=== PATIENT | male | born 1940 | race Caucasian/White ===

== ENCOUNTER 2023-04-24 11:38 | Outpatient (REF) | payer MEDICARE, SELFPAY ==
[2023-04-24 13:26] LABS: MANUAL DIFF FLAG NO
[2023-04-24 13:42] LABS: Basophils Absolute Auto 0.1 X10*3/uL (0.0-0.2); Basophils Percent Auto 0.9 % (0-2); Eosinophils Absolute Auto 0.2 X10*3/uL (0.0-0.4); Eosinophils Percent Auto 2.6 % (0-4); Hematocrit 40.9 % (42.0-52.0); Hemoglobin 13.6 g/dl (14.0-18.0); Imm Gran Abs Auto 0.04 X10*3/uL (0.00-0.03); Imm Gran Pct Auto 0.5 % (0.0-0.4); Lymphocytes Absolute Auto 1.5 X10*3/uL (1.2-4.9); Lymphocytes Percent Auto 18.1 % (20-40); Mean Corpuscular HGB Conc 33.3 g/dl (31.0-36.0); Mean Corpuscular Hemoglobin 31.4 pg (27.0-33.0); Mean Corpuscular Volume 94.5 fL (80.0-98.0); Monocytes Absolute Auto 0.9 X10*3/uL (0.1-1.2); Monocytes Percent Auto 11.3 % (2-11); Neutrophils Absolute Auto 5.3 x10*3/uL (2.0-8.3); Neutrophils Percent Auto 66.6 % (45-73); Platelet Count 239 X10*3/uL (160-400); Red Blood Count 4.33 X10*6/uL (4.60-5.80); Red Cell Distribution Width 12.7 % (11.0-16.0)
[2023-04-24 14:05] LABS: Alanine Aminotransferase 9 U/L (0-40); Alkaline Phosphatase 114 U/L (39-117); Anion Gap 12 (12-20); Aspartate Amino Transferase 18 U/L (5-37); Bilirubin Total 0.9 mg/dL (0.0-1.0); Blood Urea Nitrogen 19 mg/dL (9-16); Calcium 10.2 mg/dL (8.4-10.2); Carbon Dioxide 27 mmol/L (22-29); Chloride 103 mmol/L (96-108); Estimated Glomerular Filt Rate > 60; Glucose Random 105 mg/dL (60-115); Potassium 4.1 mmol/L (3.3-5.1); Sodium 138 mmol/L (135-145); Total Protein 7.8 g/dL (6.5-8.0)
[2023-04-24 14:19] LABS: Erythrocyte Sedimentation Rate 23 MM/HR (0-15)
[2023-04-24 14:25] LABS: Thyroid Stimulating Hormone 0.73 uIU/mL (0.32-4.0)
== END 2023-04-24 11:39 | disposition home or self-care (01) ==
LOC: HO.MANLDS 11:38
PROVIDERS: Visit Provider Internal Medicine
DX: R42 Dizziness and giddiness (principal); M62.81 Muscle weakness (generalized)
CPT/HCPCS: 36415; 80053; 84443; 85025; 85652

== ENCOUNTER 2023-04-29 14:58 | Outpatient (REF) | payer MEDICARE, OTHER, SELFPAY | END 2023-04-29 14:59 | disposition home or self-care (01) | LOC: HO.LAB 14:58 | PROVIDERS: PCP Internal Medicine; Visit Provider Internal Medicine | DX: Z13.89 Encounter for screening for other disorder (principal) ==

== ENCOUNTER → 2023-05-19 12:46 | Outpatient (REF) | payer MEDICARE, OTHER, SELFPAY ==
--- NOTE | ~2023-05-19 | US_ITS ---
EXAMINATION: US EXTRACRANIAL CAROTID DUPLEX, BILATERAL CLINICAL INFORMATION: Dizziness COMPARISON: None available. TECHNIQUE: Real-time ultrasound and Doppler techniques (integrating B-mode 2-D vascular images, Doppler spectral analysis and color-flow Doppler imaging) were utilized to interrogate the extracranial carotid arteries, the vertebral arteries and proximal subclavian arteries bilaterally. The degree of stenosis is determined by criteria similar to NASCET. FINDINGS: Right Side: 1. There is mild atherosclerotic plaque seen in the bifurcation/proximal ICA region. 2. The common carotid artery PSV proximally is 81.8 cm/s and distally 61.5 cm/s. 3. The proximal internal carotid artery velocities are 52.0 cm/s systolic and 11.5 cm/s diastolic. 4. The proximal external carotid artery PSV is 71.4 cm/s. 5. The vertebral artery shows antegrade flow. 6. The subclavian artery waveforms are normal. 7. Enlarged lymph node is seen measuring 1.6 x 0.7 cm Left Side: 1. There is mild atherosclerotic plaque seen in the bifurcation/proximal ICA region. 2. The common carotid artery PSV proximally is 83.4 cm/s and distally 64.4 cm/s. 3. The proximal internal carotid artery velocities are 56.7 cm/s systolic and 14.1 cm/s diastolic. 4. The proximal external carotid artery PSV is 68.5 cm/s. 5. The vertebral artery shows antegrade flow. 6. The subclavian artery waveforms are normal. 7. Enlarged lymph node is seen measuring 1.6 x 1.2 cm US/US carotid duplex BI IMPRESSION: 1. RIGHT: Minimal, non-hemodynamically significant stenosis of the proximal right internal carotid artery corresponding to a 0-49% stenosis by velocity criteria. 2. LEFT: Minimal, non-hemodynamically significant stenosis of the proximal left internal carotid artery corresponding to a 0-49% stenosis by velocity criteria. 3. Enlarged bilateral cervical lymph nodes
--- NOTE | 2023-05-19 12:49 | CA_ITS ---
Transthoracic Echocardiogram Patient (Last, First, Middle): Moi Pratt L Gender: Male Date of : 1940 Age: 82 Procedure Date: 05/19/2023 Procedure Type: Transthoracic Echocardiogram Location: OP Height: 177.8 cm Weight: 79.38 kg BSA: 1.97 m2 Heart Rate: bpm BP: 130 / 70 mmHg Rock Cutter: TO Referring MD: Terry Gerard MD Symptoms: R42 DIZZINESS GIDDINESS Study Quality: Fair ECG Rhythm: Sinus Conclusions: - The left ventricular systolic function is low normal. The visually estimated ejection fraction is between 50-55%. - The inferoseptal wall and basal inferior segment are hypokinetic. - No obvious valvular pathology seen on this study. - There is moderate dilatation of the ascending aorta measuring 4.60 cm. Findings Procedure Information The study quality is limited by the patients inability to tolerate the test. Left Ventricle Normal left ventricular cavity size. The left ventricular systolic function is low normal. The visually estimated ejection fraction is between 50-55%. Evidence suggests grade I (mild) diastolic dysfunction. There is mild septal asymmetric hypertrophy. Wall Motion Rest Echo Findings The inferoseptal wall and basal inferior segment are hypokinetic. Right Ventricle Mildly increased right ventricular cavity size. There is normal right ventricular systolic function. Atria The left atrium is mildly dilated. The right atrium is normal in size. Aortic Valve There is mild calcification of the aortic valve. There is no aortic valve stenosis. There is trace (trivial) aortic valve regurgitation. Mitral Valve The mitral valve appears normal. There is no mitral valve regurgitation. There is no mitral valve stenosis. Pulmonic Valve The pulmonic valve is likely normal. Tricuspid Valve There is trace tricuspid valve regurgitation. There is no evidence of pulmonary hypertension. Great Vessels There is moderate dilatation of the ascending aorta measuring 4.60 cm. Venous The inferior vena cava is dilated and collapses greater than 50% with inspiration. Pericardium/Pleural There is no evidence of pericardial effusion. Prior Study Comparison No prior study available for comparison. Recommendations, Care & Conclusions No obvious valvular pathology seen on this study. Measurements 2D Linear Measurements IVSd: 1.05 0.6-0.9/0.6-1.0 cm LVIDd: 5.02 3.9-5.3/4.2-5.9 cm LVIDd Index: 2.55 2.4-3.2/2.2-3.1 cm/m2 LVIDs: 3.44 2.0-3.6 cm LVPWd: 0.90 0.7-1.1 cm LA Diam: 3.30 2.7-3.8/3.0-4.0 cm LAIDs Index: 1.68 1.5-2.3 cm/m2 LV Mass: 221.19 67-162/88-224 g LV Mass Index: 112.28 43-95/49-115 g/m2 LVOT Diam: 2.20 3.0+(-)1.3 cm 2D Systolic Function EF 4C: 53.50 >55% EF 2C: 57.40 >55% EF BiP: 57.00 >55% Mitral Valve MV Pk E: 0.44 MV PK A: 0.62 MV Decel Time: 359.00 E/A: 0.70 E'Lateral: 4.90 E'Medial: 4.46 E/E' Med: 9.90 E/E' Lat: 9.00 PHT: 105.00 MVA PHT: 2.10 Decel Dade: 1.23 Aortic Valve AoV Pk Kody: 1.39 AoV Mn Kody: 0.99 AoV VTI: 0.31 AoV Pk Grad: 8.00 Aov Mn Grad: 4.00 CONSTANTIN Cont.VTI: 2.27 LVOT LVOT Pk Kody: 0.73 LVOT Mn Kody: 0.48 LVOT VTI: 0.19 LVOT Pk Grad: 2.00 LVOT Mn Grad: 1.00 LVOT Diam: 2.20 LVOT Area: 3.80 Diastolic Function MV Pk E: 0.44 MV Pk A: 0.62 E/A: 0.70 E'Medial: 4.46 E/E' Med: 9.90 E' Laterial: 4.90 E/E' Lat: 9.00 Right Ventricle TAPSE (mm): 21.40 TVS' Kody: 12.70 Tricuspid Valve TR Pk Kody: 1.74 TR Pk Grad: 12.00 RA Press: 8.00 RVSP: 20.00 Great Vessels Aorta Sinus of Valsalva: 3.71 2.0-3.[address] [place]: 3.09 1.7-3.4 cm Ao Asc: 4.60 2.1-3.4 cm Updated in Other Vendor System with Status of Final Miquel Mcgill MD electronically signed on 05/20/2023 9:27:01 AM with status of Final
== END ==
LOC: HO.CARD 12:46
PROVIDERS: PCP Internal Medicine; Visit Provider Internal Medicine
DX: R42 Dizziness and giddiness (principal)
CPT/HCPCS: 93306; 93880

== ENCOUNTER → 2023-05-19 12:49 | Outpatient (BNV) | payer MEDICARE, OTHER, SELFPAY | PROVIDERS: PCP Internal Medicine; Visit Provider Internal Medicine | DX: I35.8 Other nonrheumatic aortic valve disorders (principal) | CPT/HCPCS: 93306 ==

== ENCOUNTER 2023-05-28 11:24 | Emergency (ER) | payer MEDICARE, OTHER, SELFPAY ==
[2023-05-28] VITALS (10 sets, daily range): BP systolic 118–144; BP diastolic 57–72; PULSE 58–85; RESP 16; TEMP 35.7–36.7; O2SAT 98–100; BMI 27.0
--- NOTE | ~2023-05-28 | XR_ITS ---
EXAMINATION: XR CHEST CLINICAL INFORMATION: Syncope and difficulty breathing COMPARISON: None available. TECHNIQUE: Frontal view of the chest was obtained. FINDINGS: Patient is very rotated as the study suboptimal. Lungs are grossly clear. Heart and pulmonary vessels normal without evidence for congestive change. Slight widening of the mediastinal structures likely technical and due to ectatic vessels. When clinically feasible I would recommend a well centered PA and lateral film. XR/XR chest 1V IMPRESSION: No active disease.
--- NOTE | ~2023-05-28 | CT_ITS ---
EXAMINATION: CT HEAD WITHOUT CONTRAST CLINICAL INFORMATION: Dizziness COMPARISON: None available. TECHNIQUE: Contiguous axial imaging was performed from the skull base to vertex without intravenous administration of contrast. This CT examination was performed using dose optimization techniques as appropriate, variously including the following: *Automated exposure control *Adjustment of mA and/or kV according to patient size (this includes techniques or standardized protocols for targeted exams where dose is matched to indication/reason for exam; i.e. extremities or head) *Use of iterative reconstruction technique DLP: 794 mGy-cm FINDINGS: There is prominence to the sulci and ventricles with matter gliosis observed however, no intra or extra-axial fluid collection or hemorrhage, mass, or mass effect. Calvarium intact. CT/CT head/brain wo IV con IMPRESSION: No acute intracranial pathology.
--- NOTE | 2023-05-28 13:30 | PC.NURSE ---
pt reporting on and off dizziness for 3 months. per pt and family he had an echo last week and results are pending. scheduled ct scan tomorrow. Pt denies taking any medications. orthostatic vitals done. pt stood up with stand by assistance, reported feeling lightheaded when he stood
--- NOTE | 2023-05-28 13:54 | ED_ITS ---
HPI - Dizziness General Chief Complaint: Dizziness Stated Complaint: FOUND ON GROUND,DIZZY,NAUSEA PER EMS Time Seen by Provider: 05/28/23 13:08 History of Present Illness HPI Narrative: Patient is a 82-year-old male with a history of having dizziness spells ongoing for the last 3 months. Patient has been standing for a period of time was cooking an egg subsequently felt dizzy. Lower himself gradually to the ground. There was no trauma. Over about 30 minutes or so the symptoms resolved. He denies having any chest pain no diaphoresis. No bloody stool. No coughing or congestion or upper respiratory symptoms. No new medication. Patient from home. The spells are exactly the same as previous. Patient had had an echo and carotids done both of which were negative. Related Data Allergies Allergy/AdvReac Type Severity Reaction Status Date / Time No Known Allergies Allergy Verified 05/28/23 11:39 Review of Systems 2 Review of Systems: Positive episode of weakness Yes all other systems are reviewed and are negative [facility] Past Medical History Attestation statement: The following information was validated with the patient. Social History Social History Alcohol intake: current Smoked in Last 30 Days: No Use of substances other than those prescribed or required for medical reasons: No Advance Directives: No Advance Directives Information Provided: Yes Physical Exam 2 Vital Signs: Vital Signs: Last Vital Signs Temp 96.3 F L 05/28/23 11:48 Pulse 74 05/28/23 15:54 Resp 16 05/28/23 11:48 BP 125/64 05/28/23 15:54 Pulse Ox 100 05/28/23 11:48 O2 Del Method Room Air 05/28/23 11:48 BMI result Body Mass Index 27.0 Appearance: Alert. Oriented X3. No acute distress. Eyes: Pupils equal, round and reactive to light. ENT: Pharynx normal. Neck: Normal inspection. Neck supple. No lymph nodes noted. No crepitus CVS: Normal heart rate and rhythm. Pulses normal. Normal S1 and S2 Respiratory: No respiratory distress. Breath sounds normal. No Wheezing. No rales Abdomen: Soft and nontender. No rigidity. No distention. good BS x4 Skin: Skin warm and dry. Normal skin color. Normal skin turgor. Extremities: No lower extremity edema. Neurovascular intact to all extremities. No Lacerations. No Rash Neuro: Oriented X 3. No motor deficit. No sensory deficit. Moving all extermities. No slurred speech Medical Decision Making Medical Decision Making [facility] Narrative: Patient is an 82-year-old male been having multiple episodes of near syncope dizziness spells. Today actually slid down to the ground slowly. There was no trauma. CT scan of the head was done. It was grossly negative. No evidence of bleeding. Patient's orthostatics were done. On lying blood pressure was 134/62 heart rate is 69 on standing patient's blood pressure is 125/64 heart rate is 74. Patient old lab was reviewed. Had a carotid done recently did not show any gross obstruction. Patient's echo was done recently. It showed a few areas of hypokinesis but good overall function. Patient's electrolytes today were unremarkable. Hemoglobin is baseline no evidence for anemia. Urine showed no signs of infection. Case was consulted by Cardiology. Will have patient follow-up on an outpatient basis. In stable condition. Differential Diagnosis Differential Diagnoses: The differential diagnosis associated with the presentation includes Vasovagal syncope, dehydration, arrhythmia Admission/Observation Consideration of admission/observation: Escalation of care including admission/observation considered Consult Healthcare Provider Management of the patient was discussed with: Tool Profiling Machine Set Up Operator (Cardiology) Lab Data [facility] Lab Attestation statement: I reviewed the patient's lab results. 05/28/23 14:40 05/28/23 14:40 Labs: Lab Results 05/28/23 05/28/23 Range/Units 14:40 15:30 WBC 9.5 (4.8-10.8) X10*3/uL RBC 4.21 L (4.60-5.80) X10*6/uL Hgb 13.0 L (14.0-18.0) g/dl Hct 38.7 L (42.0-52.0) % MCV 91.9 (80.0-98.0) fL MCH 30.9 (27.0-33.0) pg MCHC 33.6 (31.0-36.0) g/dl RDW 12.9 (11.0-16.0) % Plt Count 196 (160-400) X10*3/uL MPV 9.5 (9.4-12.4) fL Immature Gran % (Auto) 0.4 (0.0-0.4) % Neut % (Auto) 80.9 H (45-73) % Lymph % (Auto) 11.7 L (20-40) % [place] % (Auto) 6.2 (2-11) % Eos % (Auto) 0.5 (0-4) % Baso % (Auto) 0.3 (0-2) % Lymph # (Auto) 1.1 L (1.2-4.9) X10*3/uL [place] # (Auto) 0.6 (0.1-1.2) X10*3/uL Eos # (Auto) 0.1 (0.0-0.4) X10*3/uL Baso # (Auto) 0.0 (0.0-0.2) X10*3/uL Abs Immat Gran (auto) 0.04 H (0.00-0.03) X10*3/uL Absolute Neuts (auto) 7.7 (2.0-8.3) x10*3/uL Absolute Nucleated RBC 0.000 (0.0-0.012) X10*3/uL Nucleated RBC % (auto) 0.0 (0.0-0.2) /100WBC Sodium 137 (135-145) mmol/L Potassium 4.3 (3.3-5.1) mmol/L Chloride 106 (96-108) mmol/L Carbon Dioxide 23 (22-29) mmol/L Anion Gap 12 (12-20) BUN 17 H (9-16) mg/dL Creatinine 1.02 (0.5-1.4) mg/dL Estim Creat Clear Calc 56.6 Estimated GFR > 60 Random Glucose 98 (60-115) mg/dL Calcium 9.6 (8.4-10.2) mg/dL Total Bilirubin 0.9 (0.0-1.0) mg/dL AST 22 (5-37) U/L ALT 16 (0-40) U/L Alkaline Phosphatase 135 H (39-117) U/L Troponin I High Sens 12.6 (<3.5-35.0) ng/L Total Protein 7.5 (6.5-8.0) g/dL Albumin 3.7 (3.5-5.0) g/dL Urine Color Yellow Urine Appearance Clear Urine pH 6.0 (5.0-9.0) Ur Specific [place] 1.015 (1.005-1.025) Urine Protein Negative (Neg-Trace) mg/dL Urine Glucose (UA) Negative (Negative) mg/dL Urine Ketones Trace (Negative) mg/dL Urine Blood Negative (Negative) Urine Nitrite Negative (Negative) Ur Leukocyte Esterase Negative (Negative) Independent Interpretation I performed an independent interpretation of an: EKG (Heart rate is 60 NV QRS QTC within normal limits is no acute ST segment elevation noted.) and CT Scan (CT scan of the head grossly negative for any acute evidence of bleeding) Radiology Impression Discussion of test interpretation with radiology: I have reviewed the radiologist's reading. Independent Historian Clinical information obtained from an independent historian. History obtained from or confirmed by: Other (Patient's daughters) External Record Review External record reviewed: Office record Previous records reviewed including previous outpatient labs and previous outpatient ultrasound Chronic Conditions Patient?s care impacted by: Hypertension Discharge Plan Discharge Clinical Impression: Near syncope Patient Disposition: Home, Self-Care Instructions: Near Syncope (ED) Referrals: Ramón Rosado MD [Physician] - 06/01/23
--- NOTE | 2023-05-28 14:40 | ECG_ITS ---
Test Reason : CHEST PAIN Blood Pressure : / mmHG Vent. Rate : 058 BPM Atrial Rate : 058 BPM P-R Int : 192 ms QRS Dur : 076 ms QT Int : 430 ms P-R-T Axes : 015 004 007 degrees QTc Int : 422 ms Sinus bradycardia Otherwise normal ECG When compared with ECG of 29-DEC-2012 12:31, No significant change was found Referred By: Latia Leal Electronically Signed By:TRACI WISDOM MD
[2023-05-28 14:50] LABS: MANUAL DIFF FLAG NO
[2023-05-28 14:51] LABS: Basophils Percent Auto 0.3 % (0-2); Eosinophils Absolute Auto 0.1 X10*3/uL (0.0-0.4); Eosinophils Percent Auto 0.5 % (0-4); Hematocrit 38.7 % (42.0-52.0); Imm Gran Abs Auto 0.04 X10*3/uL (0.00-0.03); Imm Gran Pct Auto 0.4 % (0.0-0.4); Lymphocytes Absolute Auto 1.1 X10*3/uL (1.2-4.9); Lymphocytes Percent Auto 11.7 % (20-40); Mean Corpuscular HGB Conc 33.6 g/dl (31.0-36.0); Mean Corpuscular Hemoglobin 30.9 pg (27.0-33.0); Mean Corpuscular Volume 91.9 fL (80.0-98.0); Mean Platelet Volume 9.5 fL (9.4-12.4); Monocytes Absolute Auto 0.6 X10*3/uL (0.1-1.2); Monocytes Percent Auto 6.2 % (2-11); Neutrophils Absolute Auto 7.7 x10*3/uL (2.0-8.3); Neutrophils Percent Auto 80.9 % (45-73); Platelet Count 196 X10*3/uL (160-400); Red Blood Count 4.21 X10*6/uL (4.60-5.80); Red Cell Distribution Width 12.9 % (11.0-16.0); White Blood Count 9.5 X10*3/uL (4.8-10.8)
[2023-05-28 15:11] LABS: Troponin-I High Sensitivity 12.6 ng/L (<3.5-35.0)
[2023-05-28 15:28] LABS: Alanine Aminotransferase 16 U/L (0-40); Albumin Level 3.7 g/dL (3.5-5.0); Alkaline Phosphatase 135 U/L (39-117); Anion Gap 12 (12-20); Aspartate Amino Transferase 22 U/L (5-37); Bilirubin Total 0.9 mg/dL (0.0-1.0); Blood Urea Nitrogen 17 mg/dL (9-16); Calcium 9.6 mg/dL (8.4-10.2); Carbon Dioxide 23 mmol/L (22-29); Chloride 106 mmol/L (96-108); Creatinine Clr Calc Pharmacy 56.6; Estimated Glomerular Filt Rate > 60; Glucose Random 98 mg/dL (60-115); Potassium 4.3 mmol/L (3.3-5.1); Sodium 137 mmol/L (135-145); Total Protein 7.5 g/dL (6.5-8.0)
[2023-05-28 15:37] LABS: Appearance Urine Clear; Color Urine Yellow; Glucose Urine UA Negative (Negative); Leukocyte Esterase Urine Negative (Negative); Nitrite Urine Negative (Negative); Specific Gravity - Urine 1.015 (1.005-1.025); Urine Blood Negative (Negative); Urine Ketones Trace mg/dL (Negative); Urine Protein Negative (Neg-Trace)
--- NOTE | 2023-05-28 16:03 | PC.NURSE ---
post tib pulses palpable bilaterally, pedal pulses found via Doppler and marked
== END 2023-05-28 16:39 | disposition home or self-care (01) ==
PROVIDERS: Emergency Provider Emergency Medicine Emergency Medical Services; PCP Internal Medicine
DX: R55 Syncope and collapse (principal); R53.1 Weakness; R00.1 Bradycardia, unspecified; I10 Essential (primary) hypertension
CPT/HCPCS: 36415; 70450; 71045; 80053; 81003; 84484; 85025; 93005; 99284

== ENCOUNTER → 2023-05-28 14:40 | Outpatient (BNV) | payer MEDICARE, OTHER, SELFPAY | PROVIDERS: Emergency Provider Emergency Medicine Emergency Medical Services; PCP Internal Medicine; Visit Provider Internal Medicine Cardiovascular Disease | DX: R00.1 Bradycardia, unspecified (principal) | CPT/HCPCS: 93010 ==

== ENCOUNTER → 2023-06-17 13:37 | Outpatient (REF) | payer MEDICARE, OTHER, SELFPAY ==
--- NOTE | 2023-06-17 13:42 | HM_ITS ---
* Total monitoring time 7 days. * Underlying rhythm is sinus with an average rate of 63/Min. Range 43 to 95/Min. * Frequent supraventricular ectopy with a burden of 4%. Rare couplets. * Rare ventricular ectopy. 4 beat run of AIVR during sleep hours. * No significant pauses or AV blocks. * Dizziness/near syncope/oozy, back/neck aches associated with supraventricular ectopy. Abdominal cramps associated with sinus rhythm. MTDD
== END ==
LOC: HO.CARD 13:37
PROVIDERS: PCP Internal Medicine; Referring Provider Internal Medicine Cardiovascular Disease; Visit Provider Physician Assistant
DX: R42 Dizziness and giddiness (principal)
CPT/HCPCS: 93242

== ENCOUNTER → 2023-06-17 13:42 | Outpatient (BNV) | payer MEDICARE, OTHER, SELFPAY | PROVIDERS: PCP Internal Medicine; Referring Provider Internal Medicine Cardiovascular Disease; Visit Provider Internal Medicine | DX: I47.10 Supraventricular tachycardia, unspecified (principal) | CPT/HCPCS: 93244 ==

== ENCOUNTER 2023-07-20 10:57 | Outpatient (AMB) | payer MEDICARE, OTHER, SELFPAY ==
[2023-07-20 10:58] VITALS: BP 108/60; PULSE 71; BMI 25.3
--- NOTE | 2023-07-20 10:58 | MHC.OFFVIS ---
Intake Vital Signs 07/20/23 10:58 07/20/23 11:19 07/20/23 11:19 07/20/23 11:20 Height 5 ft 10 in Weight 176 lb 5.917 oz BMI 25.3 BP 108/60 117/62 117/60 113/56 L Blood Pressure Location Lt brachial Lt brachial Lt brachial Lt brachial Position Sitting Supine Sitting Standing Pulse 71 67 66 72 Intake Visit Reasons: follow-up c dc after holter Intake Note: Follow-up [facility] [place] dc after holter c/o weakness and dizziness Rn Clinical Research Required: No Hot Header Operator: Hot Header Operator Present Accompanied by: Daughter Allergies No Known Allergies Allergy (Verified 05/28/23 11:39) Medication List - Last Reconciled 07/20/23 by Ramón Rosado MD meclizine 12.5 mg PO TID PRN HPI HPI Comments History of Present Illness Details Thank you for referring Moi in cardiology consultation today for symptoms of lightheadedness. Patient is 82-year-old male with no significant past medical history who over the last 6-8 months has been having symptoms of lightheadedness. He came to the emergency room in May this year with episode of near-syncope. During that episode he said he was standing in the kitchen counter doing dishes and then got lightheaded and then try to get his bad but he did not catch it early enough and said he went to the ground mostly like he was going to pass out. He had his but pillows down there and he did not hurt himself. However prior to that he said he has been having these episodes while standing at the kitchen counter doing stuff and he would run to the master bedroom which is close by and would lie down to improve his symptoms. However after the last ER visit when he said in the car the daughter says while he was sitting has severe lightheaded spell like the world was spinning. He has been prescribe meclizine but has not taken it. He has never had a syncopal episode. He denies any palpitations. Subsequently had a workup echocardiogram in April which had shown low normal LVEF of 50-55% with possible RCA territory wall motion abnormality with moderately enlarged thoracic aorta. He also had subsequent Holter monitor after presenting to the emergency room which showed frequent PACs but without any significant tachy or Reilly arrhythmias to explain his symptoms. He had a CT scan of head while in the emergency room which was normal. He subsequently had an MRI of the brain which showed some ischemic changes but no space-occupying lesion. They concerned about this findings. He has ultrasound of carotids which showed mild carotid disease. Over the last 5 days he is developed double vision which is very bothersome to him and has led to lack of balance. He is currently using a walker. His orthostatic vitals done in the office are within normal limits. [facility] Medical History Thoracic aortic aneurysm Social History Alcohol intake: current Review of Systems Const Denies chills, Denies daytime sleepiness, Denies fatigue, Denies fever(s), Denies frequent falls, Denies poor appetite, Denies snoring, Denies stops breathing during sleep, Denies weakness, Denies weight gain and Denies weight loss Eyes Denies loss of vision ENT Denies dizziness and Denies hearing loss Card Denies chest pain, Denies claudication, Denies leg edema, Denies lightheadedness, Denies palpitations, Denies dyspnea, Denies dyspnea on exertion and Denies orthopnea Resp Denies cough, Denies excessive phlegm production, Denies dyspnea, Denies dyspnea on exertion, Denies snoring and Denies wheezing GI Denies abdominal pain, Denies hematochezia, Denies change in bowel habits, Denies nausea and Denies vomiting Denies dysuria and Denies urinary frequency Musc Denies arthralgias, Denies muscle weakness, Denies numbness and Denies other (frequent falls) Skin/Breast Denies nail changes and Denies rash Neuro Denies Abnormal speech present, Denies dizziness, Denies frequent falls, Denies loss of vision, Denies memory loss, Denies numbness and Denies weakness Psych Denies depression and Denies memory loss Endo Denies fatigue and Denies palpitations Herminio/Lymph Reports easy bruising and Reports other (anemia) Aller/Immun Denies wheezing Physical Exam Vital Signs: Last Vital Signs Pulse 72 07/20/23 11:20 BP 113/56 L 07/20/23 11:20 BMI result Body Mass Index 25.3 Const General: cooperative, comfortable, no acute distress, alert and awake Nutritional Appearance: thin and other (Frail appearing) Orientation/consciousness: patient oriented x3 Limitations: ambulation with walker HEENT Head: Yes normocephalic and Yes atraumatic Neck Neck: Yes trachea midline, Yes supple and Yes no JVD Resp Effort & Inspection: normal respiratory effort Auscultation: clear to auscultation bilaterally Cardio Jugular venous distension: no JVD Palpation: normal PMI Rate: regular rate Rhythm: regular rhythm Heart sounds: S1 normal heart sound present, S2 normal heart sound present, no click, no gallops, no murmurs and no rubs GI Auscultation: normal bowel sounds Skin General skin exam: no rashes or lesions noted Neuro General: patient oriented x3 and no focal motor deficits Speech: No Abnormal speech present Extrem General: Yes no clubbing, cyanosis or edema Assessment & Plan Assessment & Plan (1) Lightheadedness: Code(s): R42 - Dizziness and giddiness Plan: Patient with lightheadedness, 2 different kind of symptoms. He does notice spinning sensation and the whole turning around but also has what appears to be orthostatic lightheadedness which gets better when he lies down. Not sure of all of these symptoms are related to 1 diagnosis. He does have low normal LV ejection fraction and wall motion abnormality. Underlying coronary artery disease is likely but unlikely the causes orthostatic symptoms. He does have frequent PACs again unlikely to cause symptoms. His carotid duplex and brain imaging appear to be not explaining his symptoms dizziness although he has an upcoming neurologic appointment. His double vision is probably not related to his symptoms of orthostatic lightheadedness although it is unclear. I recommend he should see an international accounting manager. Advised to increase his fluid intake to at least 48 oz and liberalize the salt intake. I have also taken the liberty to add midodrine 2.5 mg t.i.d. to his regimen to see if symptoms are improved with orthostatic lightheadedness. Advised to monitor blood pressure at home. Given abnormal echocardiogram will suggest vasodilating myocardial perfusion imaging to rule out prognostically significant coronary artery disease. (2) Thoracic aortic aneurysm: Code(s): I71.20 - Thoracic aortic aneurysm, without rupture, unspecified Plan: Thoracic aortic aneurysm which is moderate Mary Ann enlarged. This incidental finding. Patient was not aware of it. We discussed about management of thoracic aortic aneurysm. At this point in time at this size there is no indication for surgical repair. Risk of acute aortic syndrome is low. Would measure annually. (3) PAC (premature atrial contraction): Code(s): I49.1 - Atrial premature depolarization Plan: Frequent PACs although these are not symptomatic and causing his orthostatic lightheadedness or dizziness. I would avoid treating this given that he has low blood pressure and no obvious symptoms related to it. Avoidance of stimulants was discussed. Follow up in the clinic in 4 weeks time to assess for symptom improvement with midodrine. Thank you for allowing me to partake in his care Orders: Orders CA lexiscan stress w geneiss Today R93.1 - Abnormal findings on diagnostic imaging of heart and coronary circulation Medications: New midodrine do not give last dose of day after 6PM or within 4 hrs of bedtime 2.5 mg PO TID 90 tabs 2RF Coding Level of Care Code New Pt Level 4 (38506) Diagnoses Lightheadedness R42 Thoracic aortic aneurysm I71.20 PAC (premature atrial contraction) I49.1
[2023-07-20 11:19] VITALS: BP 117/60; BP 117/62; PULSE 66; PULSE 67
[2023-07-20 11:20] VITALS: BP 113/56; PULSE 72
== END 2023-07-20 11:51 | disposition home or self-care (01) ==
PROVIDERS: PCP Internal Medicine; Visit Provider Internal Medicine Cardiovascular Disease
DX: R42 Dizziness and giddiness (principal); I71.20 Thoracic aortic aneurysm, without rupture, unspecified; I49.1 Atrial premature depolarization
CPT/HCPCS: 99214

== ENCOUNTER → 2023-07-20 10:57 | Outpatient (BNVA) | payer MEDICARE, OTHER, SELFPAY | PROVIDERS: PCP Internal Medicine; Visit Provider Internal Medicine Cardiovascular Disease | DX: R42 Dizziness and giddiness (principal); I71.20 Thoracic aortic aneurysm, without rupture, unspecified; I49.1 Atrial premature depolarization | CPT/HCPCS: 99212 ==

== ENCOUNTER 2023-09-26 14:24 | Emergency (ER) | payer MEDICARE, OTHER, SELFPAY ==
--- NOTE | ~2023-09-26 | CT_ITS ---
Examination: CT brain and CT cervical spine. Clinical indications: Fall with head strike. COMPARISON: CT brain 05/28/2023. TECHNIQUE: 5 mm thin axial and reformatted 2 mm thin sagittal coronal images of brain were obtained. Subsequently axial 3 mm thin and reformatted 2 mm thin sagittal and coronal images of cervical spine were obtained. DLP [id number]. This CT examination was performed using dose optimization technique as appropriate, variously including the following: Automated exposure control Adjustment of MA and/or KV according to patient size(this includes techniques or standardized protocols for targeted exams where dose is matched to indication/reason for exam; extremities or head. Use of iterative reconstruction techniques. FINDINGS: Brain: There is no acute intra-axial, extra-axial bleed, masses or midline shift. There is a subtle hypodensity seen in the cortex and deep white matter of left posterior parietal lobe suspicious for ischemia. The ramos to white matter differentiation is maintained normal. The lateral ventricles are symmetrical in size and configuration with mild enlargement enlargement. The bone windows reveal no calvarial abnormality. There is no scalp soft tissue abnormality. The paranasal sinuses and mastoid sinuses are well-aerated except for mild mucoperiosteal thickening right maxillary sinus. Cervical spine: The vertebral heights and alignment is normal. There is mild loss of C6-C7 disc level with vacuum disc phenomena. Mild ventral spondylosis seen throughout cervical spine. There is mild left C3-C4, right C4-C5 and C5-C6 facet joint arthropathy and hypertrophy. No visible acute fracture, dislocation or subluxation seen. The craniovertebral junction and C1-C2 alignment is normal. The prevertebral soft tissues are normal. There is blotchy soft tissue ossification of ligamentum nuchae. Posterior to C2 through C6 vertebra. CT/CT cervical spine wo IV con IMPRESSION: Subtle hypodensity in the deep white matter and cortex of left posterior parietal lobe/watershed area suspicious for ischemia. Mild cerebral volume loss. Exaggerated cervical lordosis without acute fracture or dislocation. There are mild degenerative changes.
--- NOTE | ~2023-09-26 | CT_ITS ---
EXAMINATION: CT ANGIOGRAM HEAD CT ANGIOGRAM NECK CLINICAL INFORMATION: Reason for Exam multiple falls , hx multiple CVAs COMPARISON: Same-day CT head TECHNIQUE: Initial noncontrast reporting lead imaging of the head and neck was performed. Comparison is made with noncontrast head CT from earlier today. Test bolus sequences followed by intravenous administration 70 mL of Omnipaque 350. Helical imaging was performed in the axial plane from the aortic arch to the skull vertex. Delayed postcontrast imaging of the head was also performed. The data was processed at the histotechnologist's workstation for generation of MIP sequences. Angled MIPs and volume rendered reformatted images were also generated at an offline 3D workstation. Stenoses are assessed in accordance with Charles et al. Quantification of Carotid Stenosis on CT Angiography. AJR 2006. 27(1):13-19. [address] CT examination was performed using dose optimization techniques as appropriate, variously including the following: *Automated exposure control *Adjustment of mA and/or kV according to patient size (this includes techniques or standardized protocols for targeted exams where dose is matched to indication/reason for exam; i.e. extremities or head) *Use of iterative reconstruction technique DLP: 1548 mGy-cm FINDINGS: CT HEAD: Again seen is hypodensity in the left parietal/occipital region suspicious for infarction. Enhancing extra-axial lesion along the right frontal vertex may represent a small meningioma. Please see separately dictated head CT for additional findings. CTA HEAD: Anterior circulation: Right internal carotid artery: Atherosclerosis without flow-limiting stenosis. Small probable infundibulum arising from the supraclinoid segment. Right middle cerebral artery: No hemodynamically significant stenosis. Right anterior cerebral artery: No hemodynamically significant stenosis. Left internal carotid artery: Atherosclerosis without flow limiting stenosis. Small posterior communicating artery origin infundibulum. Left middle cerebral artery: No flow-limiting stenosis. Approximately 2 mm laterally directed outpouching from the MCA bifurcation. Left anterior cerebral artery: No hemodynamically significant stenosis. Posterior circulation: Right vertebral artery: No hemodynamically significant stenosis. Left vertebral artery: No hemodynamically significant stenosis. Basilar artery: No hemodynamically significant stenosis. Right posterior cerebral artery: No hemodynamically significant stenosis. Left posterior cerebral artery: No hemodynamically significant stenosis. The left transverse and sigmoid sinus are likely congenitally small in caliber. 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 CTA NECK: Aortic arch: Normal anatomy. Scattered atherosclerosis of the thoracic aorta and proximal great vessels. Right common carotid artery: Proximally degraded by motion. No hemodynamically significant stenosis in the nondegraded aspects. Right proximal internal carotid artery: No hemodynamically significant stenosis. Right mid/distal internal carotid artery: No hemodynamically significant stenosis. Left common carotid artery: No hemodynamically significant stenosis. Left proximal internal carotid artery: No hemodynamically significant stenosis. Left mid/distal internal carotid artery: No hemodynamically significant stenosis. Right vertebral artery: No hemodynamically significant stenosis. Left vertebral artery: No hemodynamically significant stenosis. CT NECK: Nodular opacity in the left upper lobe measuring up to 8.5 mm. Marked exaggeration the normal cervicothoracic kyphosis with multilevel degenerative disc disease. CT/CT angio head neck IMPRESSION: CT HEAD: Again seen is hypodensity in the left parietal/occipital region suspicious for infarction. Correlation with MRI is recommended for further evaluation. Enhancing extra-axial lesion along the right frontal vertex may represent a small meningioma. Finding would be better evaluated on MRI brain with and without contrast. Please see separately dictated head CT for additional findings. CTA NECK: No hemodynamically significant stenosis. Approximately 8mm nodular opacity in the left upper lobe. Per the 2017 revised Fleischner Society guidelines, recommend 6-12 month follow-up CT and consideration of subsequent follow-up CT at 18-24 months to demonstrate stability. In patients at high-risk for the development of pulmonary neoplasm, recommend 6-12 month follow-up CT and subsequent follow-up CT at 18-24 months. CTA HEAD: No proximal vessel occlusion or high-grade stenosis. Approximately 2 mm laterally directed outpouching from the left MCA bifurcation suspicious for small aneurysm. Attention on follow-up is recommended to monitor stability. Bilateral posterior communicating artery infundibula.
[2023-09-26 14:29] VITALS: BP 124/64; PULSE 76; O2SAT 96
[2023-09-26 14:34] VITALS: BP 118/50; PULSE 71; RESP 18; TEMP 36.6; O2SAT 98; BMI 21.0
[2023-09-26 16:30] VITALS: BP 112/48; PULSE 60; RESP 18; TEMP 36.4; O2SAT 99
--- NOTE | 2023-09-26 17:46 | ECG_ITS ---
Test Reason : FALL/WEAKNESS Blood Pressure : / mmHG Vent. Rate : 068 BPM Atrial Rate : 068 BPM P-R Int : 166 ms QRS Dur : 086 ms QT Int : 414 ms P-R-T Axes : 005 007 039 degrees QTc Int : 440 ms Sinus rhythm with Premature supraventricular complexes and with occasional Premature ventricular complexes Low voltage QRS Nonspecific T wave abnormality Abnormal ECG When compared with ECG of 28-MAY-2023 14:46, Premature ventricular complexes are now Present Premature supraventricular complexes are now Present Nonspecific T wave abnormality now evident in Lateral leads Referred By: Franny Yung Electronically Signed By:MARCELA CHANDRA
--- NOTE | 2023-09-26 17:48 | ED.GENADULT ---
HPI - General Adult General Chief complaint: Fall Stated complaint: FALL,HIT HEAD,+CCOLLAR,TAKES BABY ASA PER EMS Time Seen by Provider: 09/26/23 17:12 Source: patient and family Mode of arrival: ambulatory Limitations: no limitations History of Present Illness ED Provider: Dr. Franny Yung HPI narrative: Patient comes to the emergency room complaining of multiple falls. Patient is here with his daughter who is at bedside. Patient states that earlier today he was in his house in the deck, taking a son bath, as patient was trying to inside of the house, patient lost balance and fell backwards. Patient has headache, no loss of consciousness, no neck pain. According to the patient's daughter, over the last 8 months or so, patient has had multiple strokes. Patient is being worked up to find a reason of the multiple strokes. Patient is not on blood thinners. Patient denies any new symptoms, weakness, dizziness. Patient's daughter states that over the last 3 weeks, patient has been very weak, especially in his legs. [facility] However, patient is not improving. Patient is daughter requesting short-term rehab if there is no need for a medical admission. Patient's daughter states that over last few months, patient had multiple strokes, and now patient has chronic double vision Related Data Home Medications ?Medication ?Instructions ?Recorded ?Confirmed meclizine 12.5 mg tablet 12.5 mg PO TID PRN 07/20/23 07/20/23 Previous Rx's ?Medication ?Instructions ?Recorded midodrine 2.5 mg tablet 2.5 mg PO TID #90 tabs 07/20/23 Allergies Allergy/AdvReac Type Severity Reaction Status Date / Time No Known Allergies Allergy Verified 09/26/23 14:37 Review of Systems Review of Systems: Constitutional : No Weight loss, No Fever, No Chills, No Night Sweats, No Fatigue, No Malaise, complaining of worsening weakness over the last 3 weeks ENT/Mouth : No Hearing loss, No Ear Pain, No Nasal Congestion, No Sinus Pain, No Hoarseness, No sore throat, No Rhinorrhea, No Swallowing Difficulty Eyes: No Eye Pain, No Swelling, No Redness, No Foreign Body, No Discharge, chronic double vision for several months Cardiovascular : No Chest Pain, No SOB, No Dyspnea on Exertion, No Orthopnea, No Edema, No Palpitations Respiratory : No Cough, No Sputum, No Wheezing, No Smoke Exposure, No Dyspnea Gastrointestinal : No Nausea, No Vomiting, No Diarrhea, No Constipation, No abdominal Pain, No Hematochezia, No Melena Genitourinary : no irregular bleeding, No Dysuria, No Urinary Frequency, No Hematuria, No Urinary Incontinence, No Urgency, No Flank Pain, No Urinary Flow Changes, No Hesitancy Musculoskeletal : No joint pain, No Myalgias, No Joint Swelling Skin : No Skin Lesions, No rash Neuro : No Weakness, No Numbness, No Paresthesias, No Loss of Consciousness, No Dizziness, No Headache, complaining of multiple falls Psych : No Anxiety/Panic, No Depression, No SI/HI/AH/VH, No Social Issues, Heme/Lymph: No Bruising, No Bleeding,No Lymphadenopathy Endocrine : No Polyuria, No Polydipsia, No Temperature Intolerance PMFSH Past Medical History Medical History Thoracic aortic aneurysm Social History Social History Alcohol intake: current Smoked in Last 30 Days: No Use of substances other than those prescribed or required for medical reasons: No Advance Directives: No Advance Directives Information Provided: Yes Physical Exam ED Vital Signs: Vital Signs - 24 hr 09/26/23 14:34 09/26/23 16:30 09/26/23 19:12 Temperature 97.8 F 97.6 F 97.6 F Pulse Rate 71 60 66 Respiratory Rate 18 18 17 Blood Pressure 118/50 L 112/48 L 115/46 L Pulse Oximetry 98 99 99 Oxygen Delivery Method Room Air Room Air Room Air 09/26/23 22:26 09/27/23 00:43 Temperature 97.7 F 97.8 F Pulse Rate 66 61 Respiratory Rate 18 16 Blood Pressure 122/60 124/63 Pulse Oximetry 98 97 Oxygen Delivery Method Room Air Room Air BMI result Body Mass Index 21.0 Psych: calm, cooperative, normal affect Const Other: Appearance: Alert. Oriented X3. No acute distress. Eyes: Pupils equal, round and reactive to light. ENT: Pharynx normal. Hard of hearing Neck: Normal inspection. Neck supple. No lymph nodes noted. No crepitus CVS: Normal heart rate and rhythm. Pulses normal. Normal S1 and S2 Respiratory: No respiratory distress. Breath sounds normal. No Wheezing. No rales Abdomen: Soft and nontender. No rigidity. No distention. Skin: Skin warm and dry. Normal skin color. Normal skin turgor. Extremities: No lower extremity edema. No Lacerations. No Rash Neuro: Oriented X 3. No motor deficit. No sensory deficit. Moving all extremities. No slurred speech. CN 2 through 12 grossly intact Psych: calm, cooperative, normal affect Medications Administered Discontinued Medications Generic Name Dose Route Start Last Admin Trade Name Quiana PRN Reason Stop Dose Admin Sodium Chloride 1,000 mls @ 999 mls/hr 09/26/23 17:45 09/26/23 20:04 Ns IVCONT 09/26/23 18:45 Infused .Q1H1M ONE Infusion Iohexol 70 ml 09/26/23 19:03 09/26/23 19:04 Iohexol 350 Mg/Ml 100 Ml Infus..Btl IV 09/26/23 19:04 70 ml ONCE ONE Administration Medical Decision Making Medical Decision Making MDM Narrative: -patient notes CT scan of the head: Patient seems to have had multiple strokes in the past. Radiology report, there is a left posterior parietal lobe watershed areas suspicious for ischemia. As mentioned above, patient has had multiple CVAs in the past, at this time, there is no new symptoms other than the repeated falls over the last couple of weeks, there is no clear onset of symptoms. At this time, unclear if this this is a new stroke versus sequela from previous strokes. -we will order labs, CTA -CURRICUL[employer] DEVELOPMENT MANAGER shows the left parietal/occipital region suspicious for infection. I discussed with the hospitalist team that the patient likely needs an MRI for the morning. -the timing of events it is unclear, patient is out the window of treatment + the onset of the stroke can not be identify by patient's caretakers. -Dr. Cabrales and PA from the medicine team spoke to the patient, they believe that today's event is likely secondary to a mechanical fall rather than a stroke. At this time, they do not recommend admission -patient overall is very weak. Patient will benefit from short-term rehab. PT case management consult pending -the medicine team spoke with the patient's daughter regarding with the change of plans regarding admission, patient will be PT case management and likely go to a short-term rehab Physician observation started at 00:50 Differential Diagnosis Differential Diagnoses: The differential diagnosis associated with the presentation includes (CVA, TIA, mechanical fall, decondition) Admission/Observation Consideration of admission/observation: Escalation of care including admission/observation considered Consult Healthcare Provider Management of the patient was discussed with: Hospitalist Lab Data MDM Lab Attestation statement: I reviewed the patient's lab results. 09/26/23 17:56 09/26/23 17:56 Labs: Lab Results 09/26/23 09/26/23 Range/Units 17:56 19:38 WBC 10.3 (4.8-10.8) X10*3/uL RBC 3.62 L (4.60-5.80) X10*6/uL Hgb 11.2 L (14.0-18.0) g/dl Hct 32.7 L (42.0-52.0) % MCV 90.3 (80.0-98.0) fL MCH 30.9 (27.0-33.0) pg MCHC 34.3 (31.0-36.0) g/dl RDW 13.5 (11.0-16.0) % Plt Count 244 (160-400) X10*3/uL MPV 9.1 L (9.4-12.4) fL Immature Gran % (Auto) 0.7 H (0.0-0.4) % Neut % (Auto) 72.5 (45-73) % Lymph % (Auto) 13.4 L (20-40) % [place] % (Auto) 10.2 (2-11) % Eos % (Auto) 2.6 (0-4) % Baso % (Auto) 0.6 (0-2) % Lymph # (Auto) 1.4 (1.2-4.9) X10*3/uL [place] # (Auto) 1.1 (0.1-1.2) X10*3/uL Eos # (Auto) 0.3 (0.0-0.4) X10*3/uL Baso # (Auto) 0.1 (0.0-0.2) X10*3/uL Abs Immat Gran (auto) 0.07 H (0.00-0.03) X10*3/uL Absolute Neuts (auto) 7.4 (2.0-8.3) x10*3/uL Absolute Nucleated RBC 0.000 (0.0-0.012) X10*3/uL Nucleated RBC % (auto) 0.0 (0.0-0.2) /100WBC PT 12.9 (11.1-13.3) SEC INR 1.1 (0.9-1.1) Sodium 138 (135-145) mmol/L Potassium 4.0 (3.3-5.1) mmol/L Chloride 103 (96-108) mmol/L Carbon Dioxide 27 (22-29) mmol/L Anion Gap 12 (12-20) BUN 16 (9-16) mg/dL Creatinine 1.18 (0.5-1.4) mg/dL Estim Creat Clear Calc 47.5 Estimated GFR 59 Random Glucose 103 (60-115) mg/dL Calcium 9.6 (8.4-10.2) mg/dL Magnesium 2.1 (1.6-2.6) mg/dL Total Bilirubin 0.8 (0.0-1.0) mg/dL Direct Bilirubin 0.4 (0.0-0.5) mg/dL AST 20 (5-37) U/L ALT 16 (0-40) U/L Alkaline Phosphatase 165 H (39-117) U/L Total Creatine Kinase 41 (38-174) U/L Troponin I High Sens 22.5 D (<3.5-35.0) ng/L Total Protein 7.5 (6.5-8.0) g/dL Albumin 3.6 (3.5-5.0) g/dL Urine Color Yellow Urine Appearance Clear Urine pH 6.0 (5.0-9.0) Ur Specific [place] 1.020 (1.005-1.025) Urine Protein Negative (Neg-Trace) mg/dL Urine Glucose (UA) Negative (Negative) mg/dL Urine Ketones Negative (Negative) mg/dL Urine Blood Negative (Negative) Urine Nitrite Negative (Negative) Ur Leukocyte Esterase Negative (Negative) Urine Opiates Screen Not Detected (Not Detect) Ur Buprenorphine Scrn Not Detected (Not Detect) ng/mL Ur Oxycodone Screen Not Detected (Not Detect) ng/mL Urine Methadone Screen Not Detected (Not Detect) ng/mL Urine Fentanyl Screen Not Detected (Not Detect) Ur Barbiturates Screen Not Detected (Not Detect) Ur Phencyclidine Scrn Not Detected (Not Detect) Ur Amphetamines Screen Not Detected (Not Detect) U Benzodiazepines Scrn Not Detected (Not Detect) Urine Cocaine Screen Not Detected (Not Detect) U Marijuana (THC) Screen Not Detected (Not Detect) Independent Interpretation I performed an independent interpretation of an: CT Scan Radiology Impression Discussion of test interpretation with radiology: I have reviewed the radiologist's reading. Radiologist Impression: CT HEAD: Again seen is hypodensity in the left parietal/occipital region suspicious for infarction. Enhancing extra-axial lesion along the right frontal vertex may represent a small meningioma. Please see separately dictated head CT for additional findings. CTA HEAD: Anterior circulation: Right internal carotid artery: Atherosclerosis without flow-limiting stenosis. Small probable infundibulum arising from the supraclinoid segment. Right middle cerebral artery: No hemodynamically significant stenosis. Right anterior cerebral artery: No hemodynamically significant stenosis. Left internal carotid artery: Atherosclerosis without flow limiting stenosis. Small posterior communicating artery origin infundibulum. Left middle cerebral artery: No flow-limiting stenosis. Approximately 2 mm laterally directed outpouching from the MCA bifurcation. Left anterior cerebral artery: No hemodynamically significant stenosis. Posterior circulation: Right vertebral artery: No hemodynamically significant stenosis. Left vertebral artery: No hemodynamically significant stenosis. Basilar artery: No hemodynamically significant stenosis. Right posterior cerebral artery: No hemodynamically significant stenosis. Left posterior cerebral artery: No hemodynamically significant stenosis. The left transverse and sigmoid sinus are likely congenitally small in caliber. 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 CTA NECK: Aortic arch: Normal anatomy. Scattered atherosclerosis of the thoracic aorta and proximal great vessels. Right common carotid artery: Proximally degraded by motion. No hemodynamically significant stenosis in the nondegraded aspects. Right proximal internal carotid artery: No hemodynamically significant stenosis. Right mid/distal internal carotid artery: No hemodynamically significant stenosis. Left common carotid artery: No hemodynamically significant stenosis. Left proximal internal carotid artery: No hemodynamically significant stenosis. Left mid/distal internal carotid artery: No hemodynamically significant stenosis. Right vertebral artery: No hemodynamically significant stenosis. Left vertebral artery: No hemodynamically significant stenosis. CT NECK: Nodular opacity in the left upper lobe measuring up to 8.5 mm. Marked exaggeration the normal cervicothoracic kyphosis with multilevel degenerative disc disease. CT/CT angio head neck IMPRESSION: CT HEAD: Again seen is hypodensity in the left parietal/occipital region suspicious for infarction. Correlation with MRI is recommended for further evaluation. Enhancing extra-axial lesion along the right frontal vertex may represent a small meningioma. Finding would be better evaluated on MRI brain with and without contrast. Please see separately dictated head CT for additional findings. CTA NECK: No hemodynamically significant stenosis. Approximately 8mm nodular opacity in the left upper lobe. Per the 2017 revised Fleischner Society guidelines, recommend 6-12 month follow-up CT and consideration of subsequent follow-up CT at 18-24 months to demonstrate stability. In patients at high-risk for the development of pulmonary neoplasm, recommend 6-12 month follow-up CT and subsequent follow-up CT at 18-24 months. CTA HEAD: No proximal vessel occlusion or high-grade stenosis. Approximately 2 mm laterally directed outpouching from the left MCA bifurcation suspicious for small aneurysm. Attention on follow-up is recommended to monitor stability. Bilateral posterior communicating artery infundibula. Independent Historian Clinical information obtained from an independent historian. History obtained from or confirmed by: Other (Daughter) Critical Care Time Critical Care Time Critical Care Time: Yes Total Critical Care Time: 60 Attestation: I have personally provided critical care time. Time includes review of lab data, radiology results, discussion with consultants, and monitoring for potential decompensation. Intervention performed as documented. Discharge Plan Discharge Clinical Impression: Multiple falls, Physical deconditioning Patient Disposition: Still a Patient Prescriptions: No Action meclizine 12.5 mg tablet 12.5 mg PO TID PRN midodrine 2.5 mg tablet 2.5 mg PO TID Qty: 90 2RF Rx Instructions: do not give last dose of day after 6PM or within 4 hrs of bedtime Print Language: Nigerian
[2023-09-26] MEDS: 0.9 % Sodium Chloride 1,000 ML 999 ML IVCONT (17:56)
[2023-09-26 18:00] LABS: MANUAL DIFF FLAG NO
[2023-09-26 18:11] LABS: INTERNATIONAL NORM RATIO 1.1 (0.9-1.1); Prothrombin Time 12.9 SEC (11.1-13.3)
[2023-09-26 18:16] LABS: Alanine Aminotransferase 16 U/L (0-40); Albumin Level 3.6 g/dL (3.5-5.0); Alkaline Phosphatase 165 U/L (39-117); Anion Gap 12 (12-20); Aspartate Amino Transferase 20 U/L (5-37); Bilirubin Direct 0.4 mg/dL (0.0-0.5); Bilirubin Total 0.8 mg/dL (0.0-1.0); Blood Urea Nitrogen 16 mg/dL (9-16); Calcium 9.6 mg/dL (8.4-10.2); Carbon Dioxide 27 mmol/L (22-29); Chloride 103 mmol/L (96-108); Creatinine Clr Calc Pharmacy 47.5; Estimated Glomerular Filt Rate 59; Glucose Random 103 mg/dL (60-115); Magnesium 2.1 mg/dL (1.6-2.6); Sodium 138 mmol/L (135-145); Total Protein 7.5 g/dL (6.5-8.0)
[2023-09-26 18:17] LABS: Basophils Absolute Auto 0.1 X10*3/uL (0.0-0.2); Basophils Percent Auto 0.6 % (0-2); Eosinophils Absolute Auto 0.3 X10*3/uL (0.0-0.4); Eosinophils Percent Auto 2.6 % (0-4); Hematocrit 32.7 % (42.0-52.0); Hemoglobin 11.2 g/dl (14.0-18.0); Imm Gran Abs Auto 0.07 X10*3/uL (0.00-0.03); Imm Gran Pct Auto 0.7 % (0.0-0.4); Lymphocytes Absolute Auto 1.4 X10*3/uL (1.2-4.9); Lymphocytes Percent Auto 13.4 % (20-40); Mean Corpuscular HGB Conc 34.3 g/dl (31.0-36.0); Mean Corpuscular Hemoglobin 30.9 pg (27.0-33.0); Mean Corpuscular Volume 90.3 fL (80.0-98.0); Mean Platelet Volume 9.1 fL (9.4-12.4); Monocytes Absolute Auto 1.1 X10*3/uL (0.1-1.2); Monocytes Percent Auto 10.2 % (2-11); Neutrophils Absolute Auto 7.4 x10*3/uL (2.0-8.3); Neutrophils Percent Auto 72.5 % (45-73); Platelet Count 244 X10*3/uL (160-400); Red Blood Count 3.62 X10*6/uL (4.60-5.80); Red Cell Distribution Width 13.5 % (11.0-16.0); White Blood Count 10.3 X10*3/uL (4.8-10.8)
[2023-09-26 18:22] LABS: Troponin-I High Sensitivity 22.5 ng/L (<3.5-35.0)
[2023-09-26] MEDS: iohexoL 350 MG/ML 100 ML INFUS..BTL 70 ML IV (19:04)
[2023-09-26 19:12] VITALS: BP 115/46; PULSE 66; RESP 17; TEMP 36.4; O2SAT 99
[2023-09-26 19:48] LABS: Appearance Urine Clear; Color Urine Yellow; Glucose Urine UA Negative (Negative); Leukocyte Esterase Urine Negative (Negative); Nitrite Urine Negative (Negative); Urine Blood Negative (Negative); Urine Ketones Negative (Negative); Urine Protein Negative (Neg-Trace)
[2023-09-26 19:57] LABS: Amphetamine Screen Urine Not Detected (Not Detect); Barbiturates, Urine Not Detected (Not Detect); Benzodiazepines Screen Urine Not Detected (Not Detect); Buprenorphine Scr Not Detected (Not Detect); Cannabinoid Screen Urine Not Detected (Not Detect); Cocaine Screen Urine Not Detected (Not Detect); Fentanyl, urine Not Detected (Not Detect); Methadone Screen, Urine Not Detected (Not Detect); Opiate Screen Urine Not Detected (Not Detect); Oxycodone Screen Urine Not Detected (Not Detect); Phencyclidine Screen Urine Not Detected (Not Detect)
--- NOTE | 2023-09-26 21:57 | PM.IMHP ---
History of Present Illness Date of Service: 09/26/23 Attending physician on admission: Negra Isaac Chief Complaint: Fall at home Pt is an 83-year-old male with a PMH significant for? who presents to the ED with? Patient apparently has been experiencing symptoms of lightheadedness and dizziness for the past 8 to 10 months. Has been seen by Dr. Rosado in Cardiology and had workup including echocardiogram in April which showed low-normal LVEF of 50-55% with possible RCA territory wall motion abnormality and moderately enlarged thoracic aorta; Holter monitor that showed frequent PACs but without any significant tachycardia or Reilly arrhythmias; and carotid ultrasound which found minimal, non hemodynamically significant stenosis of proximal internal carotid arteries bilaterally. In the ED pt with soft diastolic BP as low as 115/46, vitals otherwise WNL. Labs were significant for troponin of 22.5, elevated over previous of 12.6 on 05/28/2023, otherwise grossly unremarkable. No leukocytosis. Stable H&H. No significant electrolyte abnormalities. Renal function WNL. Hepatic function WNL. UA negative for UTI. Tox screen negative. CT of head found subtle hypodensity in the deep white matter and cortex of left posterior parietal lobe/watershed area suspicious for ischemia, with mild cerebral volume loss. CT of cervical spine found exaggerated cervical lordosis without acute fracture or dislocation. CTA of head found 2 mm outpouching from left MCA suspicious for small aneurysm, but no proximal vessel occlusion or high-grade stenosis. CTA of neck found 8 mm nodular opacity in left upper lobe, but no hemodynamically significant stenosis. EKG demonstrated sinus rhythm with premature supraventricular complexes and occasional PVCs without evidence of significant ST elevations or depressions. Pt was treated with IVF. Pt will be admitted to the hospital [facility] Medical History Thoracic aortic aneurysm Social History Alcohol intake: current Smoked in Last 30 Days: No Use of substances other than those prescribed or required for medical reasons: No Advance Directives: No Advance Directives Information Provided: Yes Meds Allergies Allergy/AdvReac Type Severity Reaction Status Date / Time No Known Allergies Allergy Verified 09/26/23 14:37 Home Medications ?Medication ?Instructions ?Recorded ?Confirmed ?Last Taken ?Type meclizine 12.5 mg tablet 12.5 mg PO TID PRN 07/20/23 07/20/23 Unknown History Physical Exam Vital Signs and Narrative: Vital Signs: Last Vital Signs Temp 97.6 F 09/26/23 19:12 Pulse 66 09/26/23 19:12 Resp 17 09/26/23 19:12 BP 115/46 L 09/26/23 19:12 Pulse Ox 99 09/26/23 19:12 O2 Del Method Room Air 09/26/23 19:12 BMI result Body Mass Index 21.0 Results Labs 09/26/23 17:56 09/26/23 17:56 Labs: Laboratory Results - last 24 hr 09/26/23 09/26/23 17:56 19:38 MCV 90.3 MCH 30.9 MCHC 34.3 RDW 13.5 Plt Count 244 MPV 9.1 L Immature Gran % (Auto) 0.7 H Neut % (Auto) 72.5 Lymph % (Auto) 13.4 L [place] % (Auto) 10.2 Eos % (Auto) 2.6 Baso % (Auto) 0.6 Lymph # (Auto) 1.4 [place] # (Auto) 1.1 Eos # (Auto) 0.3 Baso # (Auto) 0.1 Abs Immat Gran (auto) 0.07 H Absolute Neuts (auto) 7.4 Absolute Nucleated RBC 0.000 Nucleated RBC % (auto) 0.0 PT 12.9 INR 1.1 Anion Gap 12 Estim Creat Clear Calc 47.5 Estimated GFR 59 Random Glucose 103 Calcium 9.6 Magnesium 2.1 Total Bilirubin 0.8 Direct Bilirubin 0.4 AST 20 ALT 16 Alkaline Phosphatase 165 H Total Creatine Kinase 41 Troponin I High Sens 22.5 D Total Protein 7.5 Albumin 3.6 Urine Color Yellow Urine Appearance Clear Urine pH 6.0 Ur Specific [place] 1.020 Urine Protein Negative Urine Glucose (UA) Negative Urine Ketones Negative Urine Blood Negative Urine Nitrite Negative Ur Leukocyte Esterase Negative Urine Opiates Screen Not Detected Ur Buprenorphine Scrn Not Detected Ur Oxycodone Screen Not Detected Urine Methadone Screen Not Detected Urine Fentanyl Screen Not Detected Ur Barbiturates Screen Not Detected Ur Phencyclidine Scrn Not Detected Ur Amphetamines Screen Not Detected U Benzodiazepines Scrn Not Detected Urine Cocaine Screen Not Detected U Marijuana (THC) Screen Not Detected Imaging Radiologist's Impressions: Impressions Cervical Spine CT 09/26/23 16:56 IMPRESSION: Subtle hypodensity in the deep white matter and cortex of left posterior parietal lobe/watershed area suspicious for ischemia. Mild cerebral volume loss. Exaggerated cervical lordosis without acute fracture or dislocation. There are mild degenerative changes. Head CT 09/26/23 16:56 IMPRESSION: Subtle hypodensity in the deep white matter and cortex of left posterior parietal lobe/watershed area suspicious for ischemia. Mild cerebral volume loss. Exaggerated cervical lordosis without acute fracture or dislocation. There are mild degenerative changes. Head/Neck CTA 09/26/23 19:15 IMPRESSION: CT HEAD: Again seen is hypodensity in the left parietal/occipital region suspicious for infarction. Correlation with MRI is recommended for further evaluation. Enhancing extra-axial lesion along the right frontal vertex may represent a small meningioma. Finding would be better evaluated on MRI brain with and without contrast. Please see separately dictated head CT for additional findings. CTA NECK: No hemodynamically significant stenosis. Approximately 8mm nodular opacity in the left upper lobe. Per the 2017 revised Fleischner Society guidelines, recommend 6-12 month follow-up CT and consideration of subsequent follow-up CT at 18-24 months to demonstrate stability. In patients at high-risk for the development of pulmonary neoplasm, recommend 6-12 month follow-up CT and subsequent follow-up CT at 18-24 months. CTA HEAD: No proximal vessel occlusion or high-grade stenosis. Approximately 2 mm laterally directed outpouching from the left MCA bifurcation suspicious for small aneurysm. Attention on follow-up is recommended to monitor stability. Bilateral posterior communicating artery infundibula.
[2023-09-26 22:26] VITALS: BP 122/60; PULSE 66; RESP 18; TEMP 36.5; O2SAT 98
[2023-09-27 00:43] VITALS: BP 124/63; PULSE 61; RESP 16; TEMP 36.6; O2SAT 97
[2023-09-27 04:26] VITALS: BP 118/60; PULSE 67; RESP 16; TEMP 36.6; O2SAT 97
[2023-09-27 07:37] VITALS: BP 113/45; PULSE 62; RESP 13; O2SAT 99
--- NOTE | 2023-09-27 08:00 | PC.NURSE ---
Pharmacy called for med rec Diet order placed
--- NOTE | 2023-09-27 10:08 | PC.NURSE ---
patient a&ox3, vss, pt sitting at bedside eating breakfast, pt denies pain/discomfort at this time, lungs clear/diminished rr equal non labored, call miguel within reach, will continue to monitor
--- NOTE | 2023-09-27 10:32 | PHA.MEDREC ---
Pharmacy Consult ? Medication Reconciliation Pharmacy has completed the medication reconciliation. Called patient's daughter Marjorie to confirm meds. Per daughter, patient has not started taking metoprolol succ 25 mg daily yet, so will be leaving this medication off the med rec.
--- NOTE | 2023-09-27 12:38 | PC.NURSE ---
patient a&ox2, ambulated with assist to bathroom, daughter in to visit, pt had no c/o pain/discomfort at time of ambulation, pt reminissing with this nurse about being in the [place], call miguel within reach, will continue to monitor
[2023-09-27 14:53] VITALS: BP 115/53; PULSE 70; RESP 16; TEMP 36.5; O2SAT 99
[2023-09-27 17:40] VITALS: BP 128/55; PULSE 75; RESP 18; TEMP 36.3; O2SAT 98
[2023-09-27] MEDS: Aspirin Enteric Coated 81 MG TABLET.DR PO (17:42)
--- NOTE | 2023-09-27 17:48 | PC.NURSE ---
pt is alert and oriented to self, time but was unable to report the place, skin pwd, respirations even and unlabored, ls clear, pt denies pain at this time, vs stable and took his medication with water without any difficulties. pt awaiting sniff placement
--- NOTE | 2023-09-27 20:04 | PC.NURSE ---
per daughter and pt, they believe pt has sx of weakness and brain fog d/t the side effects of lipitor, they would like to discontinue this medication. Darling TRIMBLE made aware and ok with this.
--- NOTE | 2023-09-27 23:00 | PC.NURSE ---
Assumed care of pt.
[2023-09-28 02:50] VITALS: BP 115/56; PULSE 59; RESP 12; TEMP 36.3; O2SAT 99
[2023-09-28 06:03] VITALS: BP 132/58; PULSE 63; RESP 16; TEMP 37; O2SAT 96
--- NOTE | 2023-09-28 06:28 | PC.NURSE ---
Pt 1 assist with standing on side of bed for urinal use. Pt unsteady, pleasantly confused.
[2023-09-28] MEDS: Docusate Sodium 100 MG CAPSULE PO ×2 (09:16→20:45)
[2023-09-28] MEDS: Aspirin Enteric Coated 81 MG TABLET.DR PO (09:16)
[2023-09-28 09:40] LABS: COVID-19 Test Negative (Negative); IDNOW Serial# 152EDE1D
--- NOTE | 2023-09-28 12:16 | MHC.CM.ED ---
Addendum entered by Lucila Alicea 09/28/23 14:33: Brain MRI ordered. Original Note: Received case management consult overnight. Patient came to the ER d/t a fall. 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 Physical therapy eval completed. Short term rehab is recommended. Spoke with patient's daughter/HCP, Farida, via telephone at [phone]. Patient lives with Farida. PCP verified. Copy of HCP obtained from Farida. Patient has never been to rehab. Patient has not been inpatient in the past 30 days. Patient's last brain MRI was in July 2023 at [facility]. Acute rehab referral made to all 3 facilities. [facility] is not able to offer a bed. Both [facility] and [facility] are requesting a brain MRI. Carla POWERS aware. Continue to monitor for d/c needs.
[2023-09-28 15:09] VITALS: BP 128/61; PULSE 68; RESP 20; O2SAT 98
--- NOTE | 2023-09-28 18:06 | PC.NURSE ---
Patient alert and oriented x 2-3. forgetful. Patient ambulates with walker. Patient asking to take a shower, daughter going home to get his clothes and shaving. Patient denies any pain, sob, and dizziness. Will continue with plan of care.
[2023-09-28 18:17] VITALS: BP 113/61; PULSE 64; RESP 16; TEMP 36.2; O2SAT 100
--- NOTE | 2023-09-28 19:12 | PC.NURSE ---
This RN assumed pt care @ 1900. Pt ambulated to the restroom independently. Plan of care ongoing.
--- NOTE | 2023-09-28 19:16 | PC.NURSE ---
Pt with MRI.
--- NOTE | 2023-09-28 19:35 | PC.NURSE ---
Pt back from MRI. Pts daughter at bedside. Plan of care ongoing.
--- NOTE | 2023-09-28 19:39 | PC.NURSE ---
Per MRI unable to to do the MRI on pt due to the curvature of the pts back, pt unable to to lay flat. Plan of care ongoing.
--- NOTE | 2023-09-28 19:41 | PC.NURSE ---
Pts daughter requesting pt takes a shower. Tech spoke with daughter regarding assisting pt with a shower once visiting hours are over. Plan of care ongoing.
--- NOTE | 2023-09-28 19:58 | PC.NURSE ---
Family no longer at bedside.
--- NOTE | 2023-09-28 20:06 | MHC.EDTECH ---
per daughter's request this gag writer offered patient a shower he stated he would prefer one in the morning. I will pass this along to the day staff.
--- NOTE | 2023-09-28 20:46 | PC.NURSE ---
Pt refusing med lipitor. Plan of care ongoing.
--- NOTE | 2023-09-28 22:15 | MHC.CM.ED ---
Per Provider, Unable to complete MRI due to patient's cervical spinal anatomy. Unable to be positioned properly for MRI. Provider is unsure if MRI can be completed. Will address in the am.
--- NOTE | 2023-09-28 23:14 | PC.NURSE ---
Pt ambulated to the restroom with walker.
--- NOTE | 2023-09-29 01:12 | PC.NURSE ---
Pt ambulated to restroom and back into room with walker. Plan of care ongoing.
[2023-09-29 04:16] VITALS: BP 115/56; PULSE 65; RESP 18; TEMP 36.7; O2SAT 99
[2023-09-29 07:32] VITALS: BP 126/58; PULSE 65; RESP 18; TEMP 36.4; O2SAT 100
--- NOTE | 2023-09-29 10:02 | MHC.CM.ED ---
Addendum entered by Lucila Alicea 09/29/23 11:51: Transport booked for 3pm. Patient, daughter Maritza Iqbal RN and Elvira POWERS aware. Addendum entered by Lucila Alicea 09/29/23 11:23: [facility] is able to offer a bed. Patient and daughter, Farida accept. Original Note: Patient remains in ER overflow. MRI was uanble to be performed due to spinal/cervical spine abnormality. [facility] is not able to offer a bed due to this. Still waiting to hear from [facility]. Referral broadcasted to all SNF within 20 miles. Patient has GIC. GIC will cover 80% of rehab at a SNF, even when Medicare will not cover. Family will be billed 20%. Farida is aware of this. Continue to monitor for d/c needs.
[2023-09-29] MEDS: Docusate Sodium 100 MG CAPSULE PO (11:28)
[2023-09-29] MEDS: Aspirin Enteric Coated 81 MG TABLET.DR PO (11:28)
--- NOTE | 2023-09-29 13:56 | PC.NURSE ---
Patient ambulate to bathroom and had bowel movement
[2023-09-29 15:05] VITALS: BP 97/54; PULSE 67; RESP 18; TEMP 36.9; O2SAT 100
[2023-09-29 16:46] VITALS: BP 129/60; PULSE 64; RESP 18; TEMP 36.9; O2SAT 100
== END 2023-09-29 16:48 ==
PROVIDERS: Emergency Provider Emergency Medicine; PCP Internal Medicine
DX: R53.81 Other malaise (principal); R29.6 Repeated falls; Z91.81 History of falling; R53.1 Weakness; R51.9 Headache, unspecified; I71.20 Thoracic aortic aneurysm, without rupture, unspecified; I49.1 Atrial premature depolarization; Z79.899 Other long term (current) drug therapy; Z11.52 Encounter for screening for COVID-19
CPT/HCPCS: 36415; 70450; 70496; 70498; 72125; 80048; 80076; 80307; 81003; 82550; 83735; 84484; 85025; 85610; 87635; 93005; 96360; 96361; 97162; 99285; Q9967

== ENCOUNTER → 2023-09-26 17:46 | Outpatient (BNV) | payer MEDICARE, OTHER, SELFPAY | PROVIDERS: Emergency Provider Emergency Medicine; PCP Internal Medicine; Visit Provider Internal Medicine | DX: R94.31 Abnormal electrocardiogram [ECG] [EKG] (principal) | CPT/HCPCS: 93010 ==